=== PATIENT | male | born 2000 | race Two or more races ===

== ENCOUNTER 2024-07-01 13:06 | Emergency (ER) | payer SELFPAY ==
[2024-07-01] MEDS: Lidocaine 1% 10 ML MDV INJECT ONE (13:30)
== END 2024-07-01 14:15 | disposition home or self-care (01) ==
LOC: JD.ED 13:06
DX: S81.812A Laceration without foreign body, left lower leg, initial encounter (principal); W26.0XXA Contact with knife, initial encounter
CPT/HCPCS: 12002; 99282; J3490